=== PATIENT | female | born 1980 | race Caucasian/White ===

== ENCOUNTER 2020-03-25 10:48 | Outpatient (CLI) | payer OTHER ==
[2020-03-26 11:37] LABS: SARS-CoV-2 MS2 Positive; SARS-CoV-2 N Gene Negative; SARS-CoV-2 S Gene Negative; SARS-CoV-2 orf1ab Negative
== END 2020-03-25 10:49 | disposition home or self-care (01) ==
LOC: SCSLAB 10:48
PROVIDERS: ATTEND Obstetrics & Gynecology
DX: Z01.812 Encounter for preprocedural laboratory examination (principal); Z11.59 Encounter for screening for other viral diseases
CPT/HCPCS: 87635; U0003

== ENCOUNTER 2020-03-26 08:52 | Inpatient (IN) | payer OTHER ==
[2020-03-26 09:16] VITALS: BMI 27.8
[2020-03-26] MEDS ORDERED: Ondansetron PF 4 MG/2 ML Vial IVP PRN ×3 (09:40→17:25)
[2020-03-26] MEDS ORDERED: hydrALAZINE 20 MG/ML VIAL SLOW IVP PRN ×2 (09:40→17:25)
[2020-03-26] MEDS ORDERED: Promethazine HCl 25 MG/ML VIAL IM PRN ×3 (09:40→14:24)
[2020-03-26] MEDS ORDERED: Bicitra 30 ML UDCUP PO SCH (09:45)
[2020-03-26] MEDS ORDERED: CEFAZOLIN 2 GM in Premix Bag 1 BAG IVPB SCH (09:45)
[2020-03-26] MEDS ORDERED: Azithromycin 500 MG in Sodium Chloride 0.9% 250 ML 250 ML IVPB SCH (09:45)
[2020-03-26] MEDS: Lactated Ringer's 1,000 ML IV SCH ×3 (10:00→17:37)
[2020-03-26 10:04] LABS: Hemoglobin 12.6 g/dL (12.0-16.0); Mean Corpuscular HGB CONC 34.9 g/dL (32.0-36.0); Mean Corpuscular Hemoglobin 29.2 pg (27.0-31.0); Mean Corpuscular Volume 83.5 fL (78.0-98.0); RBC Distribution Width 13.6 % (11.5-14.5); Red Blood Cell (RBC) Count 4.33 mill/uL (4.20-5.40); White Blood Cell (WBC) Count 7.5 thou/uL (4.8-10.8)
--- NOTE | 2020-03-26 10:11 | PDOC.FPROB ---
FMR OB H&P: Medications - Current Home Medications: Medication Instructions Recorded Confirmed Type Ibuprofen [Motrin] 800 mg PO TID #0 tab 02/27/14 Rx Allergies/Adverse Reactions: Allergies Allergy/AdvReac Type Severity Reaction Status Date / Time No Known Allergies Allergy Verified 03/26/20 09:14 FMR OB H&P: Results - Labs Lab results: Laboratory Results - last 24 hr 03/26/20 09:47 WBC 7.5 RBC 4.33 Hgb 12.6 Hct 36.2 MCV 83.5 MCH 29.2 MCHC 34.9 RDW 13.6 FMR OB H&P: A/P - Problem List (1) Rupture of membranes Current Visit: Yes Status: Acute Code(s): [id number] - Discussion: Date/Time: 03/26/20 1010 PCP: Renny HPI: at 38.6 weeks comes in with gross rupture of membranes around 0700 this AM. She affirms movement, denies cxns, ROM, bleeding. Denies RIVERA, visual changes, SOB, or swelling. History: OB hx: 1 miscarriage, 1 with shoulder dystocia and 4th degree lac and subsequent dehiscence, A1GDM PMH: Anxiety PSH: denies Meds: PNV All: NKDA Soc Hx: denies smoking, alcohol, drugs Fam Hx: denies downs, congenital defects REVIEW OF SYSTEMS: Gen: no fever, chills, or sweats Neuro: no numbness/tingling, no weakness, denies headache ENT: denies congestion Eyes: no visual changes Resp: denies cough, no production, no SOB, no wheeze Card: denies chest pain, no palpitations GI: denies nausea, vomiting, diarrhea : no dysuria, no hematuria Skin: no rash, no erythema Psych: denies hx anxiety/depression Vitals: T: 98.5 R: 18 BP: 151/77, 144/76, 140/77 P: 76 99% on RA PHYSICAL EXAMINATION: General: NAD, alert and oriented x3 HEENT: EOMI, normal sclera Neck: Supple. Full ROM. Heart/Cardiovascular System: RRR, Cap refill < 3 seconds, no rub, no murmur Lungs/Respiratory System: clear to auscultation bilaterally. No increased work of breathing. Room air. Abdomen/Gastro-Intestinal System: no abdominal tenderness, normal bowel sounds, Gravid Extremities: Warm extremities. No cyanosis or edema. Neuro: No gross deficits appreciated Psychiatry: Awake, Alert and cooperative with exam Skin: no lesions, no rashes Musculoskeletal: Full ROM A/P: at 38.6 weeks comes in with gross rupture of membranes FHT: 130 baseline, mod variability, no decels, accels present [place]: contractions q8-10 # Rupture of membranes - Will proceed with C/S 2/2 maternal decision based on hx of 4th degree laceration and shoulder dystocia - Surgical ppx - Cephalic on US exam # Elevated BP - Check CBC, CMP, Urine Pr/cr ratio Case discussed with Dr. Worley, will handoff care to PCP
[2020-03-26 10:18] LABS: ALT (SGPT) 11 U/L (8-55); AST (SGOT) 16 U/L (5-34); Albumin 3.5 g/dL (3.5-5.0); Alkaline Phosphatase 202 U/L (40-110); Anion Gap 12 mmol/L (10-20); BUN (Urea Nitrogen) 4 mg/dL (7.0-18.7); Bilirubin, Total 0.2 mg/dL (0.2-1.2); Calc. Creatinine Clearance 165 mL/min (70-130); Calcium 8.4 mg/dL (7.8-10.44); Carbon Dioxide 24 mmol/L (22-29); Chloride 107 mmol/L (98-107); Estimated GFR-MDRD Greater than 90; Globulin 2.2 g/dL (2.4-3.5); Glucose 68 mg/dL (70-105); Potassium 3.4 mmol/L (3.5-5.1); Protein, Total 5.7 g/dL (6.0-8.3); Sodium 140 mmol/L (136-145)
[2020-03-26 10:22] LABS: Mean Platelet Volume 11.2 fL (7.4-10.4); Platelet Count 118 thou/uL (130-400)
[2020-03-26 10:35] LABS: Syphilis Antibody Nonreactive (Nonreactive); Syphilis Antibody Index 0.04 S/CO (<1.00 Non-Reactive)
[2020-03-26 10:36] LABS: HBSAg Index 0.18 S/CO (0-0.99); Hep B Surf Ag Non-Reactive S/CO (NonReactive)
[2020-03-26 11:11] LABS: Creatinine, Urine 108.8 mg/dL (47-110)
--- NOTE | 2020-03-26 13:28 | PDOC.OPDEL ---
OB Operative/Delivery Note Delivery Dr/Surgeon: Yecenia Assist: Light Pre-Delivery Diagnosis: ruptured membrane (, hx of 4th degree perineal lac) Procedure/Post Delivery Dx: primary low transverse CS Weeks gestation: 38 Anesthesia: spinal - Additional Findings/Plan Placenta delivered: spontaneous findings: low transverse hysterotomy without extension, normal uterus, normal tubes, normal ovaries Post delivery plan: routine recovery
[2020-03-26] MEDS ORDERED: Naloxone HCl 0.4 mg/ml Vial IVP PRN ×2 (13:49)
[2020-03-26] MEDS ORDERED: Naloxone HCl 0.4 mg/ml Vial IV PRN (13:49)
[2020-03-26] MEDS ORDERED: Ondansetron HCl/PF 4 MG/2 ML Vial IVP PRN ×2 (13:49→14:24)
[2020-03-26] MEDS ORDERED: diphenhydrAMINE 50 MG/ML VIAL IVP PRN (13:49)
[2020-03-26] MEDS ORDERED: Promethazine HCl 25 MG SUPP PR PRN (13:49)
[2020-03-26] MEDS ORDERED: MORPHINE 5 MG/10 ML PF VIAL ONE (13:54)
[2020-03-26] MEDS ORDERED: Fentanyl 100 MCG/2 ML VIAL ONE (13:54)
[2020-03-26] MEDS ORDERED: Ondansetron PF 4 MG/2 ML Vial ONE ×2 (13:55→16:37)
[2020-03-26] MEDS ORDERED: Oxytocin 10 UNITS/ML VIAL ONE (13:55)
[2020-03-26] MEDS ORDERED: PHENYLEPHRINE-NS 100 MCG/ML 10 ML SYRINGE ONE (13:55)
[2020-03-26] MEDS ORDERED: Communication Order-Pharmacy FS SCH (14:00)
[2020-03-26] MEDS ORDERED: Promethazine HCl 25 MG/ML VIAL SLOW IVP PRN (14:24)
[2020-03-26] MEDS ORDERED: Lidocaine 1% (PF) 30 ML VIAL ONE (14:55)
[2020-03-26] MEDS ORDERED: Midazolam HCl 2 mg/2 ml Vial ONE (15:02)
[2020-03-26] MEDS ORDERED: Ketorolac Tromethamine 30 MG/ML VIAL ONE (15:37)
[2020-03-26] MEDS: Acetaminophen 650 MG Suppository PR SCH ×2 (16:24→22:29)
[2020-03-26] MEDS ORDERED: Misoprostol 200 MCG TAB PR PRN (17:25)
[2020-03-26] MEDS ORDERED: Lanolin Ointment 7 GM TUBE TOP PRN (17:25)
[2020-03-26] MEDS ORDERED: diphenhydrAMINE 25 MG CAP PO PRN (17:25)
[2020-03-26] MEDS ORDERED: Promethazine HCl 25 MG/ML VIAL ONE (17:32)
[2020-03-26] MEDS ORDERED: NS / Oxytocin 40 units/1000ml 1,000 ML IV SCH (17:45)
[2020-03-26] MEDS ORDERED: Adacel (T-DAP) 0.5 ML SYRINGE IM ONE (21:00)
[2020-03-26] MEDS: Ketorolac Tromethamine 30 MG/ML VIAL IVP PRN (21:18)
[2020-03-26] MEDS: Docusate Calcium (SURFAK) 240 MG CAP PO SCH (21:18)
[2020-03-26] MEDS: Simethicone Chewable 80 MG TAB PO PRN (21:18)
[2020-03-27] MEDS: Lactated Ringer's 1,000 ML IV SCH ×3 (01:00→17:47)
[2020-03-27] MEDS ORDERED: HYDROcodone/Acetaminophen 5/325 mg Tablet PO PRN (02:00)
[2020-03-27] MEDS: Acetaminophen 650 MG Suppository PR SCH ×2 (02:53→08:39)
[2020-03-27] MEDS: Ketorolac Tromethamine 30 MG/ML VIAL IVP PRN (03:30)
[2020-03-27] MEDS: Simethicone Chewable 80 MG TAB PO PRN ×3 (03:30→17:15)
--- NOTE | 2020-03-27 06:05 | PDOC.PP ---
Post Progress Note Post Day #: 1 Subjective: Patient feeling well this AM. , good latch. Pain well controlled. Tolerating PO. Minimal vaginal bleeding. PO intake tolerated: yes Flatus: yes Ambulation: yes Vital Signs (12 hours) Temp Pulse Resp BP BP Pulse Ox 03/27/20 03:30 98.6 F 67 16 121/58 L 03/26/20 23:15 98.8 F 61 16 121/69 03/26/20 20:05 99.0 F 61 16 129/67 94 L Weight Weight 73.482 kg - Physical Examination General: NAD Cardiovascular: no m/r/g, RRR Respiratory: clear to auscultation bilaterally, non-labored breathing Abdominal: + bowel sounds, no distention, appropriately TTP Extremities: negative homans (B) Skin: CS incision dry & intact, no rash Neurological: no gross focal deficits Psychiatric: A&Ox3, normal affect Result Diagrams: 03/26/20 09:47 03/26/20 09:47 Additional Labs: Post Labs Blood Type A POSITIVE 03/26/20 13:06 Hep Bs Antigen Non-Reactive S/CO (NonReactive) 03/26/20 09:47 (1) Rupture of membranes Code(s): [id number] - Status: Acute - Assessment/Plan #PP day 1 - incision dry and intact - pain well controlled - d/c meyers catheter this AM # History of PP pre-eclampsia - BPs well controlled, denies RIVERA or visual changes Case discussed with Dr. Worley
[2020-03-27 06:24] LABS: Hemoglobin 9.4 g/dL (12.0-16.0); Mean Corpuscular Volume 84.9 fL (78.0-98.0); Mean Platelet Volume 11.1 fL (7.4-10.4); Platelet Count 111 thou/uL (130-400); RBC Distribution Width 13.6 % (11.5-14.5); Red Blood Cell (RBC) Count 3.36 mill/uL (4.20-5.40); White Blood Cell (WBC) Count 7.9 thou/uL (4.8-10.8)
[2020-03-27] MEDS: Prenatal Vitamin 1 TAB PO SCH (08:39)
[2020-03-27] MEDS: Docusate Calcium (SURFAK) 240 MG CAP PO SCH ×2 (08:39→21:46)
[2020-03-27] MEDS: Ferrous Sulfate 325 MG TAB PO SCH ×2 (08:39→17:15)
[2020-03-27] MEDS: HYDROcodone/Acetaminophen 5/325 mg Tablet PO PRN ×4 (08:52→21:47)
[2020-03-27] MEDS: Ibuprofen 800 MG TAB PO SCH ×2 (14:53→21:46)
[2020-03-27] MEDS ORDERED: Ibuprofen 800 MG TAB PO SCH (22:00)
[2020-03-28] MEDS: Lactated Ringer's 1,000 ML IV SCH (01:25)
[2020-03-28] MEDS: Ibuprofen 800 MG TAB PO SCH ×2 (05:22→12:06)
[2020-03-28] MEDS: Prenatal Vitamin 1 TAB PO SCH (07:34)
[2020-03-28] MEDS: Docusate Calcium (SURFAK) 240 MG CAP PO SCH (07:34)
[2020-03-28] MEDS: Ferrous Sulfate 325 MG TAB PO SCH (07:34)
[2020-03-28] MEDS: HYDROcodone/Acetaminophen 5/325 mg Tablet PO PRN ×2 (07:35→12:06)
[2020-03-28] MEDS: Simethicone Chewable 80 MG TAB PO PRN (07:38)
[2020-03-28 10:37] VITALS: BP 136/71; TEMP 98.6
== END 2020-03-28 12:15 | disposition home or self-care (01) | DRG 788 ==
LOC: L&D/OP 08:52 → L&D 09:40 → 3SW 20:00
PROVIDERS: ADMIT Student in an Organized Health Care Education/Training Program; ATTEND Student in an Organized Health Care Education/Training Program
PROC: 10D00Z1 Extraction of Products of Conception, Low, Open Approach (ICD-10-PCS; principal; 2020-03-26)
DX: O75.89 Other specified complications of labor and delivery (principal); Z3A.38 38 weeks gestation of pregnancy; Z37.0 Single live birth; Z87.59 Personal history of other complications of pregnancy, childbirth and the puerperium
CPT/HCPCS: 36415; 51702; 80053; 82570; 84156; 85027; 86780; 86850; 86900; 86901; 87340; 87635; 99285; J0456; J0690; J1885; J2001; J2250; J2274; J2405; J2550; J2590; J3010; J7050; U0003